=== PATIENT | female | born 1940 | race Two or more races ===

== ENCOUNTER 2022-09-02 16:36 | Emergency (ER) | payer OTHER ==
[~2022-09-02] VITALS: Ht 160 cm; Wt 68.0 kg
== END 2022-09-03 09:51 | disposition home or self-care (01) ==
LOC: ER 16:36
DX: R41.0 Disorientation, unspecified (principal); R42 Dizziness and giddiness; G30.9 Alzheimer's disease, unspecified; F02.80 Dementia in other diseases classified elsewhere, unspecified severity, without behavioral disturbance, psychotic disturbance, mood disturbance, and anxiety; Z20.822 Contact with and (suspected) exposure to COVID-19